=== PATIENT | male | born 1965 | race Caucasian/White ===

== ENCOUNTER → 2021-04-10 | Outpatient (CLI) | payer BC ==
--- NOTE | 2021-04-10 16:10 | KCIC ---
EXAMINATION: CT LOWER RIGHT EXTREMITY WITHOUT CONTRAST, 04/10/2021 1:22 PM CLINICAL INDICATION: Osteoarthritis. Conformis protocol, pre-surgical planning. COMPARISON: Bilateral knee radiograph 03/28/2020 TECHNIQUE: Helical CT imaging performed of the right lower extremity without the use of intravenous c ontrast per Conformis protocol. Sagittal and coronal reformats were obtained. One or more of the following individualized dose reduction techniques were utilized for this examinat ion: 1. Automated exposure control 2. Adjustment of the mA and/or kV according to patient size 3. Use of iterative reconstruction technique. FINDINGS: No acute fracture. There is lateral subluxation of the patella and severe patellofemoral yudi int space narrowing with small subchondral cysts and osteophytes. There is mild medial and lateral co mpartment narrowing with small osteophytes. There is an eccentric lesion in the proximal medial tibia l shaft with cortical thickening and a sclerotic rim, consistent with a healed nonossifying fibroma. This measures about 1 x 1 x 2 cm (image 79, series). Mild posterior translation of the tibia relative to the femur. The knee and ankle are unremarkable. Small Bolaños cyst. Quadriceps and patellar tendons are intact. Cruciate and collateral ligaments not well evaluated. No significant joint effusion. IMPRESSION: Tricompartmental osteoarthrosis of the right knee, greatest in the patellofemoral compart ment. Electronically signed by: Suze Whittaker MD (04/10/2021 4:08 PM) [id number]
== END ==
LOC: KCIC CT 13:15
PROVIDERS: ATTEND Orthopaedic Surgery
DX: S83.011A Lateral subluxation of right patella, initial encounter (principal); M17.0 Bilateral primary osteoarthritis of knee; M71.21 Synovial cyst of popliteal space [Baker], right knee; M25.761 Osteophyte, right knee; X58.XXXA Exposure to other specified factors, initial encounter; Y93.89 Activity, other specified; Y92.89 Other specified places as the place of occurrence of the external cause; Y99.8 Other external cause status
CPT/HCPCS: 73700

== ENCOUNTER → 2021-06-23 | Outpatient (CLI) | payer BC ==
[~2021-06-23] MED LIST: CELE200C PO; FERR-36 PO; GLUC1CAP41 PO; TERB250T72 PO
[2021-06-23 08:50] LABS: BASO % 1 % (0-3); EOS # 0.2 x10^3/uL (0.0-0.7); EOS % 5 % (0-3); HEMATOCRIT 43.5 % (39.0-53.0); HEMOGLOBIN 14.8 g/dL (13.0-17.5); LYMPH # 1.2 x10^3/uL (1.0-4.8); LYMPH % 29 % (24-48); MEAN CORPUSCULAR HEMOGLOBIN 30 pg (25-35); MEAN CORPUSCULAR HGB CONC 34 g/dL (31-37); MEAN CORPUSCULAR VOLUME 88 fL (79-100); MONO # 0.4 x10^3/uL (0.0-1.1); MONO % 10 % (0-9); NEUT # 2.3 x10^3/uL (1.8-7.7); NEUT % 56 % (31-73); PLATELET COUNT 271 x10^3/uL (140-400); RED BLOOD COUNT 4.95 x10^6/uL (4.30-5.70); RED CELL DISTRIBUTION WIDTH 12.6 % (11.5-14.5); WHITE BLOOD COUNT 4.1 x10^3/uL (4.0-11.0)
[2021-06-23 09:07] LABS: PROTHROMBIN TIME PATIENT 12.8 SEC (11.7-14.0)
[2021-06-23 09:12] LABS: ALBUMIN 3.8 g/dL (3.4-5.0); CALCIUM 8.8 mg/dL (8.5-10.1); GFR 77.3; POTASSIUM 4.1 mmol/L (3.5-5.1)
--- NOTE | 2021-06-23 12:06 | EKG ---
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 Electronically Signed On 06-26-2021 10:27:14 SOLAR APPLICATIONS DEVELOPMENT ENGINEER by Chase Taylor MD
--- NOTE | 2021-06-23 12:36 | RAD ---
EXAM: Chest, 2 views. HISTORY: Elevated BMI. COMPARISON: None. FINDINGS: 2 views of the chest are obtained. There is no infiltrate, pleural effusion or pneumothorax . The heart is normal in size. IMPRESSION: No acute pulmonary finding. Electronically signed by: Nela Mahan MD (06/23/2021 12:34 PM) [id number]
[2021-06-23 23:32] LABS: HEMOGLOBIN A1C 5.3 % (4.8-5.6)
== END ==
LOC: SURGPAT 12:08
PROVIDERS: ATTEND Orthopaedic Surgery
DX: Z01.818 Encounter for other preprocedural examination (principal); I45.2 Bifascicular block; R94.31 Abnormal electrocardiogram [ECG] [EKG]; M17.0 Bilateral primary osteoarthritis of knee
CPT/HCPCS: 36415; 71046; 80048; 82040; 82306; 83036; 85025; 85610; 85651; 85730; 87641; 93005

== ENCOUNTER → 2021-08-19 | Outpatient (CLI) | payer BC ==
[~2021-08-19] MED LIST changes: +ASPI325T11 PO
[2021-08-19 13:22] LABS: BASO % 0 % (0-3); EOS # 0.2 x10^3/uL (0.0-0.7); EOS % 4 % (0-3); HEMOGLOBIN 14.6 g/dL (13.0-17.5); LYMPH # 1.5 x10^3/uL (1.0-4.8); LYMPH % 25 % (24-48); MEAN CORPUSCULAR HEMOGLOBIN 30 pg (25-35); MEAN CORPUSCULAR HGB CONC 34 g/dL (31-37); MEAN CORPUSCULAR VOLUME 88 fL (79-100); MONO # 0.5 x10^3/uL (0.0-1.1); MONO % 8 % (0-9); NEUT # 3.8 x10^3/uL (1.8-7.7); NEUT % 63 % (31-73); PLATELET COUNT 305 x10^3/uL (140-400); RED BLOOD COUNT 4.91 x10^6/uL (4.30-5.70); RED CELL DISTRIBUTION WIDTH 12.8 % (11.5-14.5); WHITE BLOOD COUNT 6.1 x10^3/uL (4.0-11.0)
[2021-08-19 13:28] LABS: PROTHROMBIN TIME PATIENT 12.4 SEC (11.7-14.0)
[2021-08-19 13:30] LABS: ALBUMIN 3.6 g/dL (3.4-5.0); CALCIUM 8.4 mg/dL (8.5-10.1); GFR 77.3; POTASSIUM 4.5 mmol/L (3.5-5.1)
[2021-08-20 01:10] LABS: HEMOGLOBIN A1C 5.4 % (4.8-5.6)
== END ==
LOC: SURGPAT 12:20
PROVIDERS: ATTEND Orthopaedic Surgery
DX: Z01.812 Encounter for preprocedural laboratory examination (principal); M17.0 Bilateral primary osteoarthritis of knee
CPT/HCPCS: 36415; 80048; 82040; 82306; 83036; 85025; 85610; 85651; 85730; 87641

== ENCOUNTER 2021-08-25 07:23 | Observation (INO) | payer BC ==
[2021-06-25 13:03] VITALS: BP 131/103
[2021-08-19 12:50] VITALS: BP 134/92
[~2021-08-25] VITALS: Ht 188 cm; Wt 115.9 kg
[2021-08-25] VITALS (8 sets, daily range): BP systolic 118–140; BP diastolic 74–89
[~2021-08-25 07:23] MED LIST changes: +ACETAMINOPHEN 500 MG TABLET PO PRN; -ASPI325T11 PO; +CLINDAMYCIN 900MG PREMIX 50 ML IV PRN; +GABAPENTIN 300 MG CAPSULE. PO PRN; +MORPHINE SULFATE 2 MG/ML INJ. IVP PRN; +PROCHLORPERAZINE 10 MG/2 ML VIAL. IVP PRN; +fentaNYL PF VIAL 100 MCG/2 ML VIAL IVP PRN
[2021-08-25] MEDS ORDERED: TRANEXAMIC ACID 1,000 MG in IV NS 50ML -- 2ND BAG INJ ONE (08:00)
[2021-08-25] MEDS ORDERED: LIDOCAINE 2% PF 5 ML VIAL. ONE (08:12)
[2021-08-25] MEDS ORDERED: PROPOFOL 50 ML IV ONE (08:12)
[2021-08-25] MEDS ORDERED: TRANEXAMIC ACID in NS IVPB 50 ML ONE (08:13)
[2021-08-25] MEDS: IV RINGERS,LACTATED 1000ML 1,000 ML IV SCH ×2 (08:16→12:09)
[2021-08-25] MEDS ORDERED: fentaNYL PF VIAL 100 MCG/2 ML VIAL ONE ×2 (08:23→11:11)
[2021-08-25] MEDS ORDERED: MIDAZOLAM HCL/PF 2 MG/2 ML VIAL. ONE (08:24)
[2021-08-25] MEDS ORDERED: MORPHINE SULFATE 2 MG/ML INJ. IVP PRN (09:30)
[2021-08-25] MEDS ORDERED: METOCLOPRAMIDE HCL 10 MG/2 ML VIAL. IVP PRN (09:30)
[2021-08-25] MEDS ORDERED: 0.9 % SODIUM CHLORIDE 10 ML DISP.SYRIN. IV PRN (09:30)
[2021-08-25] MEDS ORDERED: CALCIUM CARBONATE 500 MG TAB.CHEW PO PRN (09:30)
[2021-08-25] MEDS ORDERED: IV DEXTROSE 5% 250 ML BAG. IV PRN (09:30)
[2021-08-25] MEDS ORDERED: diphenhydrAMINE 50 MG/ML VIAL IVP PRN (09:30)
[2021-08-25] MEDS ORDERED: fentaNYL PF VIAL 100 MCG/2 ML VIAL IVP PRN (09:30)
[2021-08-25] MEDS ORDERED: PROCHLORPERAZINE 5 MG TABLET. PO PRN (09:30)
[2021-08-25] MEDS ORDERED: DEXTROSE 50% 25 GM / 50ML DISP.SYRIN. IV PRN (09:30)
[2021-08-25] MEDS ORDERED: PROPOFOL 10 MG/ML (20ML) VIAL. IV ONE (10:20)
[2021-08-25] MEDS ORDERED: KETAMINE HCL IN NACL, ISO-OSM 50 MG/5 ML SYRINGE ONE (10:22)
[2021-08-25] MEDS: TV=62ml MORPHINE 5 MG, KETOROLAC 30 MG, ROPIV, EPI INT ART ONE ×2 (10:27→10:56)
[2021-08-25] MEDS ORDERED: KETOROLAC 30 MG/ML VIAL. ONE (10:48)
--- NOTE | 2021-08-25 10:53 | HP ---
DATE OF SERVICE: 08/25/2021 ADMIT DATE: 08/25/2021 REASON FOR H AND P: Preoperative for right total knee arthroplasty. BRIEF HISTORY: The patient is a 55-year-old male who has undergone multiple injections, has undergone significant nonoperative measures for significant degenerative changes in his right knee. It is actually on both knees, but the right is slightly worse at this point. He is very active and likes to do a lot of hiking; however, at the present time he cannot hike any longer, he cannot do a lot of activities of daily living secondary to the significant increase in pain lately. REVIEW OF SYSTEMS: Unremarkable other than his current musculoskeletal complaints. MEDICAL HISTORY: Is not significant at this point. SURGICAL HISTORY: Appendectomy and left foot surgery. FAMILY HISTORY: Remarkable for diabetes. SOCIAL HISTORY: No tobacco use; however, occasional use of alcohol. MEDICATIONS: Celebrex, previously meloxicam. MEDICATION ALLERGIES: PENICILLIN. PHYSICAL EXAMINATION: He is alert and oriented and well nourished and well developed at this point. HEENT: Within normal limits at this point. No abnormalities are noted. His lung sanchez are clear to auscultation with a regular rate and rhythm noted at this point. The abdomen is soft and nontender. There are no issues with his lungs at this point and the distal neurovascular status appears to be fully intact to lower extremities and upper extremities at this point. No other abnormalities were noted with the examination today other than both knees. Right knee is much more painful than the left at this point. There is a large effusion noted at this point as well. His range of motion today is 3 degrees up to 95 degrees of flexion secondary to pain. It limits him at this point. No instability in the varus, valgus or AP plane. No atrophy of musculature, right versus left. Significant medial and lateral joint line tenderness with positive Apley's test in the medial and lateral compartments at this point. IMPRESSION: Degenerative joint disease, bilateral knees, right greater than left. PLAN: Today, he is scheduled for right total knee arthroplasty. He will see Anesthesia following this H and P and then should be ready for replacement at that point. We have already gone over the risks, complications as well as benefits and expectations of surgery, postoperative protocol and followup. ANDRES/SAMI DR: Jennifer TID: [id number]
[2021-08-25] MEDS: TRANEXAMIC ACID 1,000 MG in IV NS 50ML -- 1ST BAG INJ ONE ×2 (10:57→11:08)
[2021-08-25] MEDS ORDERED: ASPIRIN 325 MG TABLET PO ONE (11:00)
[2021-08-25] MEDS ORDERED: ONDANSETRON PF 4 MG/2 ML VIAL. ONE (11:08)
[2021-08-25] MEDS ORDERED: DEXAMETHASONE SOD PHOS 4 MG/ML VIAL ONE (11:08)
--- NOTE | 2021-08-25 11:20 | PDOC4 ---
OPERATIVE NOTE Date: Date: Aug 25, 2021 Pre-Op Diagnosis: Degenerative joint disease right knee Post-Op Diagnosis: Same Procedure Performed: Right total knee arthroplasty Surgeon: Henrry Anesthesia Type: Spinal with IV sedation Blood Loss: 100 cc Specimans Obtained: Bone and soft tissue right knee Findings: See dictation components are conformers total knee arthroplasty with a 38 patella medial 6 tibial insert lateral 8 tibial insert Complications: None MANDA ULLOA Jr. DO Aug 25, 2021 11:20
[2021-08-25] MEDS: HYDROmorphone 2 MG/ML INJ. IVP PRN ×2 (11:40→12:05)
[2021-08-25] MEDS ORDERED: HYDROmorphone 2 MG/ML INJ. ONE (11:43)
--- NOTE | 2021-08-25 11:58 | RAD ---
EXAM: Right knee, 2 views. HISTORY: Arthroplasty. COMPARISON: None. FINDINGS: 2 views of the right knee are obtained. There is a right knee arthroplasty in expected posi tion. There is a small amount of joint fluid and soft tissue gas due to recent surgery. IMPRESSION: Right knee arthroplasty in expected position, with surrounding soft tissue changes due to recent surgery. Electronically signed by: Nela Mahan MD (08/25/2021 11:56 AM) [id number]
[2021-08-25] MEDS: ONDANSETRON PF 4 MG/2 ML VIAL. IVP SCH ×2 (12:00→17:50)
[2021-08-25] MEDS: ONDANSETRON ODT 4 MG TAB.RAPDIS. PO SCH ×2 (12:00→18:00)
--- NOTE | 2021-08-25 12:21 | OP ---
DATE OF SURGERY: 08/25/2021 PREOPERATIVE DIAGNOSIS: Degenerative joint disease, right knee. POSTOPERATIVE DIAGNOSIS: Degenerative joint disease, right knee. PROCEDURE: Right total knee arthroplasty. SURGEON: Rasta Sales Jr., TUB PULLER: Dave Genao. ANESTHESIA: Spinal with IV sedation. COMPLICATIONS: None. ESTIMATED BLOOD LOSS: 100 mL. COMPONENTS: ConforMIS right total knee arthroplasty with a medial 6 tibial insert, lateral A tibial insert and a 38 patella. DESCRIPTION OF PROCEDURE: The patient was taken to the operative suite, given a spinal anesthetic. Right lower extremity was then prepped and draped in a sterile fashion. Incision was made through skin and subcutaneous tissues down to the extensor mechanism. Superficial bleeding was coagulated using a Bovie knife. After that, the medial parapatellar incision was made. Patella was everted. There were severe changes noted in the patellofemoral compartment. Therefore, the size of this patella was measured. This was cut in the appropriate fashion and then a 38 was noted to be the most appropriate size for the patella; therefore, the guide was placed and the drill holes were made through the guide. This was protected as the knee was taken into a flexed position. There were noted to be severe changes to the medial compartment, moderate changes to the lateral compartment. In any manner, the medial and lateral meniscal remnants were removed as well as the ACL, PCL remained intact and the F1 guide was then placed on the femur and drilled. Chondral surface was removed. The appropriate sites and then the F2 guide was placed, held in appropriate position. The drill pins were placed on the distal femur and then they were also on the anterior femur to hold this into position. The distal pins were then removed. The remainder of the guide was noted to be intact and in good position. Following this, the distal cut was made. This was noted to be a good flush cut. This was all removed and the next guide was then placed through using the pin holes distally. This was flushed on the femur with proper rotation and orientation noted. Therefore, this was pinned in appropriate position. The anterior, posterior and one of the chamfer cuts were made as well as the plugs, those were drilled. This guide was then removed and the final guide was placed on the femur. The final chamfer cuts were then made. These were noted to be a good flush cuts. The trial fit perfectly. This was then removed and following this, the external tibial guide was placed on the tibia with medial, lateral and posterior retractors placed. Proximal tibia was then cut to the appropriate position and an extra 2 mm was taken due to the fact this was a minimal resection at this point. The trials were then placed, taken through range of motion. There was excellent tracking of the patellofemoral joint and excellent stability throughout the arc of motion. These trials were then marked on the tibial side. This was held with pins and the drill and the keel were placed at the appropriate depth for rotation. All trial components were then removed. The Werewolf was then used to coagulate posterior capsular structures as well as medial and lateral capsular structures. Cement was mixed on the back table. Cement was then placed on cut surfaces. The tibia was impacted first, followed by the femur and this was held in extension until hardening of cement. Same was done on the patella, which was held with a patellar clamp. Excess cement was removed and then after hardening of cement, excess cement was again removed and then taken through range of motion. There was excellent stability, equal flexion and extension gaps were noted at this point. Then, the trials were removed and the actual polyethylene inserts were placed and held in the tray and noted to be stable. This was taken through range of motion. Tranexamic acid was then placed within the knee itself. While the tourniquet was deflated, no excessive bleeding was noted. Superficial bleeding was coagulated with the Bovie knife as well as with the Werewolf. The medial parapatellar incision was then closed in a running fashion using the Stratafix, then taken through multiple ranges of motion, noted to be stable and secure. This was reinforced with 2 or 3 separate areas of Vicryl and then the superficial tissue and skin was reapproximated. Sterile dressing was applied. The patient was then taken from the operative bed to the postoperative bed, taken to the PACU in stable condition. If we can use that as a standard dictation for a ConforMIS total knee replacement, that would be great. VIRGEN/MOMO/SAMI DR: Jennifer TID: [id number]
--- NOTE | 2021-08-25 12:30 | NUR ---
received from recovery. He is alert and oriented x3. He is rating his pain "2". No pain medication given. He is hungry and given a meal; meal given. He has good sensation, motion, sensation and pulses bilateral lower extremities.
[2021-08-25] MEDS ORDERED: ASPI325T11 PO (13:24)
[2021-08-25] MEDS: CLINDAMYCIN 900MG PREMIX 50 ML IV SCH ×2 (15:42→21:29)
[2021-08-25] MEDS: IV NORMAL SALINE 1000ML BAG 1,000 ML IV SCH (15:42)
[2021-08-25] MEDS: FERROUS SULFATE 325 MG TABLET. PO SCH (17:50)
[2021-08-25] MEDS: oxyCODONE IR 5 MG TABLET PO PRN ×2 (17:50→21:28)
[2021-08-25] MEDS ORDERED: KETOROLAC 30MG VIAL 30 MG, BUPIVACAINE MPF 0.25% 20 ML, EPINEPHrine 0.5 MG in TOTAL VOL... INT ART SCH (18:00)
[2021-08-25] MEDS: ASPIRIN ENTERIC COATED 325 MG TABLET.DR. PO SCH (21:28)
[2021-08-25] MEDS: ZOLPIDEM 5 MG TABLET. PO PRN (21:33)
[2021-08-26] VITALS (7 sets, daily range): BP systolic 110–148; BP diastolic 62–95
[2021-08-26] MEDS: CLINDAMYCIN 900MG PREMIX 50 ML IV SCH (03:09)
[2021-08-26] MEDS: oxyCODONE IR 5 MG TABLET PO PRN ×4 (03:13→20:52)
[2021-08-26] MEDS: ONDANSETRON ODT 4 MG TAB.RAPDIS. PO SCH ×2 (05:40)
[2021-08-26] MEDS: ONDANSETRON PF 4 MG/2 ML VIAL. IVP SCH ×2 (05:40)
[2021-08-26] MEDS ORDERED: MAGNESIUM HYDROXIDE 2,400 MG/30 ML ORAL.SUSP. PO PRN (06:00)
[2021-08-26] MEDS: GABAPENTIN 100 MG CAPSULE. PO SCH ×3 (06:32→22:53)
[2021-08-26] MEDS: MELOXICAM 7.5 MG TABLET PO SCH (08:42)
[2021-08-26] MEDS: ASPIRIN ENTERIC COATED 325 MG TABLET.DR. PO SCH ×2 (08:42→20:51)
[2021-08-26] MEDS: FERROUS SULFATE 325 MG TABLET. PO SCH ×2 (08:42→16:34)
[2021-08-26] MEDS: SENNOSIDES/DOCUSATE 8.6/50MG TABLET. PO SCH (08:42)
[2021-08-26] MEDS: MULTIVITAMIN with MINERAL TABLET. PO SCH (08:42)
[2021-08-26] MEDS: ACETAMINOPHEN 500 MG TABLET PO SCH ×3 (08:43→20:52)
[2021-08-26] MEDS: IV NORMAL SALINE 1000ML BAG 1,000 ML IV SCH (09:30)
--- NOTE | 2021-08-26 11:36 | CONS ---
DATE OF CONSULTATION: 08/26/2021 INTERNAL MEDICINE CONSULT CHIEF COMPLAINT: Right knee replacement. HISTORY OF PRESENT ILLNESS: The patient is a pleasant middle-aged male who underwent right knee replacement yesterday. We have been requested for postop medical evaluation and treatment of comorbidities. PAST MEDICAL HISTORY: Appendectomy and left foot surgery. ALLERGIES: PENICILLIN. FAMILY HISTORY: Diabetes. SOCIAL HISTORY: He does not drink, smoke or take drugs. MEDICATIONS: Reviewed. Please refer to the MRAD. REVIEW OF SYSTEMS: GENERAL: No history of weight change, weakness or fevers. SKIN: No bruising, hair changes or rashes. EYES: No blurred, double or loss of vision. NOSE AND THROAT: No history of nosebleeds, hoarseness or sore throat. HEART: No history of palpitations, chest pain or shortness of breath on exertion. LUNGS: Denies cough, hemoptysis, wheezing or shortness of breath. GASTROINTESTINAL: Denies changes in appetite, nausea, vomiting, diarrhea or constipation. GENITOURINARY: No history of frequency, urgency, hesitancy or nocturia. NEUROLOGIC: Denies history of numbness, tingling, tremor or weakness. PSYCHIATRIC: No history of panic, anxiety or depression. ENDOCRINE: No history of heat or cold intolerance, polyuria or polydipsia. EXTREMITIES: He complains of left knee pain. PHYSICAL EXAMINATION: VITALS: Within normal limits and are stable. GENERAL: No apparent distress. Alert and oriented. HEENT: Normal cephalic atraumatic, external auditory canals are patent EYES: Extraocular muscles are intact, pupils are equally round and reactive to light and accommodation MUSCULOSKELETAL: Well developed, well nourished, good range of motion ENDOCRINE: No thyromegaly was palpated LYMPHATICS: No cervical chain or axillary nodes were noted HEMATOPOIETIC: No bruising NECK: Supple, no JVD, no thyromegaly was noted. LUNGS: Clear to auscultation in all lung sanchez without rhonchi or wheezing. HEART: RRR, S1, S2 present. Peripheral pulses intact, no obvious murmurs were noted. ABDOMEN: Soft, nontender. Positive bowel sounds no organomegaly, normal bowel sounds. EXTREMITIES: He has a MARÍA drain on the left knee. NEUROLOGIC: Normal speech, normal tone. A and O x 3, moves all extremities, no obvious focal deficits. PSYCHIATRIC: Normal affect, normal mood. Stable. SKIN: No ulcerations or rashes, good skin turgor, no jaundice. VASCULAR: Good capillary refill, neurovascular bundle appears to be intact. LABORATORY DATA: COVID testing is negative. Other labs are pending. ASSESSMENT AND PLAN: Postoperative left knee replacement. Clinically, he is doing well. We will continue wound care, p.r.n. pain meds, physical therapy and occupational therapy, home meds, deep venous thrombosis prophylaxis. Full code. We will trend his hemoglobin. I have ordered a CBC, BMP. Thank you very much for allowing us to participate in the care of this nice gentleman. SUDHA/MOIRA DR: SUDHA/michelle TID: [id number]
[2021-08-26] MEDS ORDERED: ONDANSETRON ODT 4 MG TAB.RAPDIS. PO PRN (12:00)
[2021-08-26] MEDS ORDERED: ONDANSETRON PF 4 MG/2 ML VIAL. IVP PRN (12:00)
--- NOTE | 2021-08-26 13:00 | NUR ---
At 1215 pt returned back from therapy. Ambulated from gym to his room. Noted pt pale and c/o slight nausea and lightheaded. Up in chair and Vital signs taken. BP 110/62, heart rate 41 and resp rate 20. At 1245 resting quietly in chair with feet up. Stated feeling better. Had some color face, BP 113/64 with rate 42. Notified Dr. Wilson gave orders to monitor heart rate and to call if heart rate goes lower than 40. Pt stated went to [facility] and had heart scan and it was negative. Also spoke with Elvie RUSSELL in recovery to make them aware, state will make note in pt's medical records. Dr. Wilson informed me that patients that had spinal anesthesia can cause bradycardia. Will keep monitoring pt per order.
[2021-08-26] MEDS ORDERED: BISACODYL 10 MG SUPP.RECT. PR PRN (16:00)
--- NOTE | 2021-08-26 18:08 | PATHOLOGY ---
[facility] Accession Number: [id number] . 01 Material submitted: . knee - RIGHT KNEE BONE AND TISSUE. Modifiers: right . 01 Clinical history: . RIGHT DEGENERATIVE JOINT DISEASE RIGHT TOTAL KNEE ARTHROPLASTY . 02 Diagnosis: Bone and soft tissue "right knee" (total arthroplasty): - Areas of complete erosion of articular cartilage, consistent with severe osteoarthritis. - Negative for malignancy. (MLK:kristan; 08/26/2021) QMS 08/26/2021 1759 Local . 02 Electronically signed: . Gordo Ahuja MD, Pathologist NPI- [id number] . 01 Gross description: . The specimen is received in formalin, labeled "Chandler Mckeon, right knee bone and tissue". Received are multiple segments of bone, including the tibial plateau, admixed with soft tissue measuring 12.5 x 12.0 x 3.0 cm in aggregate dimensions. Meniscus is present. The articular surfaces are pink-guevara to yellow-guevara and smooth to granular in appearance with evidence of eburnation. The specimen is submitted indirect sales representative in cassette A1, following decalcification. ([facility]; 08/25/2021) NRI/NRI 08/25/2021 1518 Local . 02 Pathologist provided ICD-10: M17.11 . 02 CPT . 470102, [id number] Specimen Comment: A courtesy copy of this report has been sent to [phone] Specimen Comment: 1226 Specimen Comment: Report sent to / DR GILL Performed at: [address], [place], [place] [id number] MD Samuel Ceron MD Phone: [phone] Performed at: [address] [id number] MD Cesar Montiel MD Phone: [phone]
[2021-08-26] MEDS: ZOLPIDEM 5 MG TABLET. PO PRN (20:52)
[2021-08-27 01:46] VITALS: BP 131/73
[2021-08-27] MEDS: oxyCODONE IR 5 MG TABLET PO PRN ×3 (01:49→14:03)
[2021-08-27] MEDS: ACETAMINOPHEN 500 MG TABLET PO SCH ×3 (01:57→14:03)
[2021-08-27] MEDS: GABAPENTIN 100 MG CAPSULE. PO SCH ×2 (06:24→14:03)
[2021-08-27 06:38] VITALS: BP 137/79
[2021-08-27 06:57] LABS: BASO % 0 % (0-3); EOS # 0.2 x10^3/uL (0.0-0.7); EOS % 2 % (0-3); HEMATOCRIT 37.7 % (39.0-53.0); HEMOGLOBIN 13.1 g/dL (13.0-17.5); LYMPH # 1.1 x10^3/uL (1.0-4.8); LYMPH % 13 % (24-48); MEAN CORPUSCULAR HEMOGLOBIN 30 pg (25-35); MEAN CORPUSCULAR HGB CONC 35 g/dL (31-37); MEAN CORPUSCULAR VOLUME 87 fL (79-100); MONO % 12 % (0-9); NEUT # 6.4 x10^3/uL (1.8-7.7); NEUT % 73 % (31-73); PLATELET COUNT 239 x10^3/uL (140-400); RED BLOOD COUNT 4.34 x10^6/uL (4.30-5.70); RED CELL DISTRIBUTION WIDTH 12.9 % (11.5-14.5); WHITE BLOOD COUNT 8.8 x10^3/uL (4.0-11.0)
[2021-08-27 07:14] LABS: CALCIUM 8.1 mg/dL (8.5-10.1); CREATININE 0.9 mg/dL (0.7-1.3); GFR 87.3; POTASSIUM 3.8 mmol/L (3.5-5.1)
[2021-08-27] MEDS: MELOXICAM 7.5 MG TABLET PO SCH (08:11)
[2021-08-27] MEDS: MULTIVITAMIN with MINERAL TABLET. PO SCH (08:11)
[2021-08-27] MEDS: ASPIRIN ENTERIC COATED 325 MG TABLET.DR. PO SCH (08:13)
[2021-08-27] MEDS: FERROUS SULFATE 325 MG TABLET. PO SCH (08:14)
[2021-08-27] MEDS ORDERED: MAGNESIUM HYDROXIDE 2,400 MG/30 ML ORAL.SUSP. PO ONE (08:15)
--- NOTE | 2021-08-27 08:22 | PDOC ---
[facility] PROGRESS NOTE Date of Service DOS: DATE: 08/27/21 TIME: 08:19 Chief Complaint Chief Complaint Left knee replacement History of Present Illness History of Present Illness 08/27/21 Patient seen and examined at beside Appears comfortable and feels well Had several of bradycardia, including HR in the 40s during PT. Today HR was 83. Suspect his bradycardia was secondary to the spinal anesthesia Seems to have intermittent cardiac murmur will check an echo Chart reviewed Discussed w RN Vitals/I&O Vitals/I&O: Vital Signs Date Time Temp Pulse Resp B/P (MAP) Pulse Ox O2 Delivery O2 Flow Rate FiO2 08/27/21 08:10 20 08/27/21 06:38 98.0 74 137/79 (98) 95 Room Air 98.0 I & O 08/26/21 08/26/21 08/27/21 15:00 23:00 07:00 Intake Total 300 ml Output Total 1850 ml Balance -1550 ml Physical Exam General: Alert Heart: Regular rate Lungs: Clear Abdomen: Normal bowel sounds Extremities: No clubbing Skin: No rashes Labs Labs: Laboratory Tests Test 08/27/21 06:10 White Blood Count 8.8 x10^3/uL (4.0-11.0) Red Blood Count 4.34 x10^6/uL (4.30-5.70) Hemoglobin 13.1 g/dL (13.0-17.5) Hematocrit 37.7 % (39.0-53.0) Mean Corpuscular Volume 87 fL (79-100) Mean Corpuscular Hemoglobin 30 pg (25-35) Mean Corpuscular Hemoglobin Concent 35 g/dL (31-37) Red Cell Distribution Width 12.9 % (11.5-14.5) Platelet Count 239 x10^3/uL (140-400) Neutrophils (%) (Auto) 73 % (31-73) Lymphocytes (%) (Auto) 13 % (24-48) Monocytes (%) (Auto) 12 % (0-9) Eosinophils (%) (Auto) 2 % (0-3) Basophils (%) (Auto) 0 % (0-3) Neutrophils # (Auto) 6.4 x10^3/uL (1.8-7.7) Lymphocytes # (Auto) 1.1 x10^3/uL (1.0-4.8) Monocytes # (Auto) 1.0 x10^3/uL (0.0-1.1) Eosinophils # (Auto) 0.2 x10^3/uL (0.0-0.7) Basophils # (Auto) 0.0 x10^3/uL (0.0-0.2) Sodium Level 140 mmol/L (136-145) Potassium Level 3.8 mmol/L (3.5-5.1) Chloride Level 102 mmol/L (98-107) Carbon Dioxide Level 28 mmol/L (21-32) Anion Gap 10 (6-14) Blood Urea Nitrogen 13 mg/dL (8-26) Creatinine 0.9 mg/dL (0.7-1.3) Estimated GFR (Cockcroft-Gault) 87.3 Glucose Level 108 mg/dL (70-99) Calcium Level 8.1 mg/dL (8.5-10.1) Assessment and Plan Assessmemt and Plan Assessment Post operative left knee replacement Some episodes of bradycardia yesterday probably secondary to spinal anesthesia Possible murmur next Plan We will check an echocardiogram Hope to discharge this afternoon if his heart rate normalizes For now continue the following; Incision care p.r.n. pain meds Physical therapy and occupational therapy Home meds Deep venous thrombosis prophylaxis Full code. Comment Review of Relevant I have reviewed the following items jasen (where applicable) has been applied. Medications: Current Medications Medications (Trade) Dose Ordered Sig/Burak Route PRN Reason Start Time Stop Time Status Last Admin Dose Admin Multivitamins (Thera M Plus) 1 tab DAILY PO 08/26/21 09:00 08/27/21 08:11 Senna/Docusate Sodium (Senna Plus) 1 tab DAILY PO 08/26/21 09:00 08/26/21 08:42 Acetaminophen (Tylenol) 1,000 mg Q6H PO 08/26/21 09:00 08/27/21 08:12 Meloxicam (Mobic) 15 mg DAILY PO 08/26/21 09:00 08/27/21 08:11 Justifications for Admission Other Justification PAUL MELENDEZ III DO Aug 27, 2021 08:22
[2021-08-27] MEDS ORDERED: GABA-585 PO (08:38)
[2021-08-27] MEDS ORDERED: ONDA4TAB12 PO (08:38)
[2021-08-27] MEDS ORDERED: OXYC1TAB19 PO (08:38)
--- NOTE | 2021-08-27 08:39 | SNU/HH DC ---
DISCHARGE WITH HOME HEALTH DISCHARGE INFORMATION: Condition on Discharge: Stable HOME HEALTH: Face to Face: I certify this patient is under my care and that I, or a nurse practitioner or physician's sound assistant working with me, had a face to face encounter that meets the physician face to face encounter requirements with this patient on []. Medical Complications: Other (Recent orthopedic surgery) Fdc For: Assess & Educate Safety RN For Eval/Treatment: Yes Physical Therapy For: Evalulation/Treatment Occupational Therapy For: Evaluation/Treatment Home Health Aide For: Self-care DYE AND CHEMICAL COORDINATOR For: Community Resources Pt Meets Homebound Status: Poor coordination w/ amb. POST DISCHARGE ORDERS: DIET AFTER DISCHARGE: Cardiac CERTIFICATION STATEMENT: Certification Statement: Certification Statement: Based on the above finding, I certify that this patient is confined to the home and needs intermittent assisted care, physical therapy and/or speech therapy, or continues to need occupational therapy.~ This patient is under my care, and I have initiated the establishment of the plan of care.~ This patient will be followed by myself or a community physician who will periodically review the plan of care. Home Meds Active Scripts Oxycodone/Apap 7.5-325 (PERCOCET 7.5-325 MG TABLET ) 1 Each Tablet, 1 TAB PO QIDPRN PRN for . MDD 4 Tablet(s) for 5 Days, #20 TAB 0 Refills Prov:PAUL MELENDEZ III DO 08/27/21 Reported Medications Aspirin (ASPIRIN EC) 325 Mg Tablet.dr, 1 TAB PO BID for blood thinner, #30 TAB 0 Refills 08/25/21 Glucosa Simmons 2KCL/Chondroitin Simmons (GLUCOSAMINE & CHONDROITIN CAP) 1 Each Capsule, 2 TAB PO DAILY for JOINT SUPPLEMENT, CAP 06/25/21 Celecoxib (CELEBREX) 200 Mg Capsule, 200 MG PO DAILY for PAIN for 30 Days, #30 CAP 0 Refills 06/25/21 Ferrous Sulfate (IRON) 325 Mg Tablet, 325 MG PO DAILY for SUPPLEMENT, TAB 06/25/21 PAUL MELENDEZ III DO Aug 27, 2021 08:39
[2021-08-27] MEDS: SENNOSIDES/DOCUSATE 8.6/50MG TABLET. PO SCH (09:00)
[2021-08-27] MEDS: IV NORMAL SALINE 1000ML BAG 1,000 ML IV SCH (09:30)
--- NOTE | 2021-08-27 14:00 | NUR ---
Return from Echo by w/c. Waiting for results.
[2021-08-27 14:03] VITALS: BP 125/77
[2021-08-27] MEDS ORDERED: PERFLUTREN PROTEIN-A MICROSPHR 0.22 MG/ML 3 ML VIAL. IV ONE ×2 (14:03→15:15)
--- NOTE | 2021-08-27 15:00 | NUR ---
Called [facility] to get results on Echo. RN stated will sent message to Dr. Augustine.
--- NOTE | 2021-08-27 16:20 | NUR ---
Called answering service to Dr. Augustine to get results from Echo.
--- NOTE | 2021-08-27 17:29 | NUR ---
Dr. Augustine called and stated that we could send Blayne home. He would call the results in the am at home. reviewed symptoms to call. If he feels lightheaded to take his pulse for 1 minute. If the rate is below 30 retake 5 min if still below 30 to go to the ER. if pulse is 40-60. to rest and retake pulse in 15 minutes and continue to rest with no strenuous activity. verbalized understanding and they(Blayne and ) feel comfortable going home.
--- NOTE | 2021-08-27 18:25 | NUR ---
Discharge instructions given. Answered questions and concerns. Verbalized understanding. Pt discharged home. Escorted out by w/c accompanied by .
--- NOTE | 2021-08-28 11:48 | CARD ---
MR#: [id number] Date of Study: 08/27/2021 Ordering Physician: PAUL MELENDEZ, Referring Physician: PAUL MELENDEZ Tech: Jane Dahl [facility] APPROVED REPORT EXAM: Two-dimensional and M-mode echocardiogram with Doppler and color Doppler. Other Information Quality : Technically LimitedHR: 85bpm Rhythm : NSR INDICATION Palpitations Echo Enhancing Agent Indication: Endocardial border delineation Agent/Amount Used: Optison 3mL RISK FACTORS Hypertension Obesity 2D DIMENSIONS RVDd4.3 (2.9-3.5cm)Left Atrium(2D)3.0 (1.6-4.0cm) IVSd1.2 (0.7-1.1cm)Aortic Root(2D)3.9 (2.0-3.7cm) LVDd4.3 (3.9-5.9cm)LVOT Diameter2.5 (1.8-2.4cm) PWd1.3 (0.7-1.1cm)LVDs2.3 (2.5-4.0cm) FS (%) 47.2 %SV65.6 ml LVEF(%)78.9 (>50%) Aortic Valve AoV Peak Ethan.127.8cm/sAoV VTI22.1cm AO Peak GR.6.5mmHgLVOT Peak Ethan.107.8cm/s AO Mean GR.4mmHgAVA (VMAX)4.14cm2 Mitral Valve MV E Xalhbkla13.6cm/sMV DECEL [id number] MV A Yexkwnhe46.4cm/sE/A Ratio0.9 Tricuspid Valve TR P. Sfinhdtb792aq/sTR Peak Gr.29mmHg LEFT VENTRICLE The left ventricle is normal size. There is mild concentric left ventricular hypertrophy. The left ve ntricular systolic function is normal. Estimated ejection fraction 65%. There is normal LV segmental wall motion. Transmitral Doppler flow pattern is Grade I-abnormal relaxation pattern. RIGHT VENTRICLE The right ventricle is borderline dilated. There is normal right ventricular wall thickness. The righ t ventricular systolic function is normal. ATRIA The left atrium size is normal. The right atrium size is normal. The interatrial septum is intact wit h no evidence for an atrial septal defect or patent foramen ovale as noted on 2-D or Doppler imaging. AORTIC VALVE The aortic valve is normal in structure and function. Doppler and Color Flow revealed no significant aortic regurgitation. There is no significant aortic valvular stenosis. MITRAL VALVE The mitral valve is normal in structure and function. There is no evidence of mitral valve prolapse. There is no mitral valve stenosis. Doppler and Color Flow revealed no mitral valve regurgitation note d. TRICUSPID VALVE The tricuspid valve is normal in structure and function. Trace tricuspid regurgitation. There is no t ricuspid valve stenosis. PULMONIC VALVE The pulmonary valve is normal in structure and function. Doppler and Color Flow revealed no pulmonic valvular regurgitation. GREAT VESSELS The aortic root is mildly enlarged. The ascending aorta is Mildly dilated. The IVC is normal in size and collapses >50% with inspiration. PERICARDIAL EFFUSION There is no evidence of significant pericardial effusion. Critical Notification Critical Value: No <Conclusion> The left ventricular systolic function is normal. Estimated ejection fraction 65%. There is normal LV segmental wall motion. Transmitral Doppler flow pattern is Grade I-abnormal relaxation pattern. Trace tricuspid regurgitation. There is no evidence of significant pericardial effusion. Signed by : Alden Augustine, Electronically Approved : 08/28/2021 11:48:03
--- NOTE | 2021-08-28 12:45 | DS ---
DATE OF DISCHARGE: 08/27/2021 ADMISSION DIAGNOSIS: Left knee pain. DISCHARGE DIAGNOSIS: Resolving left knee replacement. HOSPITAL COURSE: The patient is a pleasant middle-aged male who presented with left knee osteoarthritis and underwent a left knee replacement. He did physical therapy and occupational therapy for a day or 2 after surgery. Yesterday, I saw and examined him. He is doing well. We discharged to home. DISPOSITION: Home. ACTIVITY: As tolerated. DIET: Low sodium. DISCHARGE MEDICATIONS: Please see MRAD. TOTAL TIME: 32 minutes. SUDHA/CAMILA DR: Wendy TID: [id number]
== END 2021-08-27 17:25 | disposition home or self-care (01) ==
LOC: SURG 07:23 → INTOOBSV 08:29 → 4 SOUTHEST 08:29
PROVIDERS: ADMIT Orthopaedic Surgery; ATTEND Orthopaedic Surgery
DX: M17.11 Unilateral primary osteoarthritis, right knee (principal); Z20.822 Contact with and (suspected) exposure to COVID-19; M25.562 Pain in left knee; Z96.652 Presence of left artificial knee joint; Z79.899 Other long term (current) drug therapy; Z98.890 Other specified postprocedural states; Z90.49 Acquired absence of other specified parts of digestive tract; Z79.82 Long term (current) use of aspirin
CPT/HCPCS: 27447; 36415; 73560; 80048; 85025; 86850; 86900; 86901; 88304; 88311; 93306; 96365; 96366; 96375; 97116; 97150; 97162; 97165; 97530; 97535; A4213; A4930; A6450; A6550; C1755; C1776; G0378; G0379; J0171; J1100; J1170; J1885; J2250; J2270; J2405; J2704; J2795; J3010; J3490; J7030; Q9956; A4223; C8929